=== PATIENT | female | born 1985 | race Caucasian/White ===

== ENCOUNTER 2017-06-24 09:43 | Emergency (ER) | payer OTHER ==
[2017-06-24 09:59] VITALS: BP 120/65
[2017-06-24] MEDS ORDERED: Tetan/Diph/Pertus SYR(Tdap)* 0.5 ML SYR(BOOSTRIX) use SYR IM ONE (10:44)
--- NOTE | 2017-06-24 11:16 | UC ---
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 TETANUS STATUS UNKNOWN. - History Of Current Complaint Chief Complaint: UCLaceration Stated Complaint: LEFT HAND LACERATION WC Time Seen by Provider: 06/24/17 10:24 Hx Obtained From: Patient Hx Last Menstrual Period: 06/17/17 Laceration Location: Hand Mechanism Of Injury: Sharp Trauma Onset/Duration: Sudden Onset, Lasting Hours, Still Present Severity: Mild Pain Intensity: 6 Pain Scale Used: 0-10 Numeric Related History: Occupational Injury, Dominant Hand Right - Allergies/Home Medications Allergies/Adverse Reactions: Allergies Allergy/AdvReac Type Severity Reaction Status Date / Time No Known Allergies Allergy Verified 06/24/17 09:56 PMH/Surg Hx/FS Hx/Imm Hx Previously Healthy: Yes - Surgical History Surgical History: Yes Surgery Procedure, Year, and Place: wisdom teeth - Family History Known Family History: Negative: Blood Disorder - Social History Occupation: Employed Full-time Lives: With Family Alcohol Use: Occasionally Substance Use Type: None Smoking Status (MU): Never Smoked Tobacco - Immunization History Most Recent Influenza Vaccination: Not the 2016/2017 Season Most Recent Tetanus Shot: Unknown Review of Systems Constitutional: Negative Skin: Other - LACERATION LEFT HAND Eyes: Negative ENT: Negative Respiratory: Negative Cardiovascular: Negative Gastrointestinal: Negative Genitourinary: Negative Motor: Negative Neurovascular: Negative Musculoskeletal: Negative Neurological: Negative Psychological: Negative Is Patient Immunocompromised?: No All Other Systems Reviewed And Are Negative: Yes Physical Exam Triage Information Reviewed: Yes Appearance: Well-Appearing, No Pain Distress, Well-Nourished Vital Signs: Initial Vital Signs Temp 98.1 F 06/24/17 09:55 Pulse 88 06/24/17 09:55 Resp 16 06/24/17 09:55 BP 120/65 06/24/17 09:55 Pulse Ox 100 06/24/17 09:55 Vital Signs Reviewed: Yes Eye Exam: Normal ENT Exam: Normal ENT: Positive: Normal ENT inspection, Pharynx normal Dental Exam: Normal Neck exam: Normal Neck: Positive: Supple, Nontender, No Lymphadenopathy Respiratory Exam: Normal Respiratory: Positive: Chest non-tender, Lungs clear, Normal breath sounds, No respiratory distress, No accessory muscle use Cardiovascular Exam: Normal Cardiovascular: Positive: RRR, No Murmur, Pulses Normal Abdominal Exam: Normal Musculoskeletal Exam: Normal Musculoskeletal: Positive: Strength Intact, ROM Intact Neurological Exam: Normal Psychological Exam: Normal Skin: Positive: Other - LACERATION LEFT HAND Laceration Repair - Laceration Repair 1 Description: Linear Laceration Size After Repair: Length (cm) - 5, Width (mm) - 2, Depth (mm) - 1 Cleansing Completed Via Routine Prep: Yes Irrigation With Pressure Irrigation Device: Yes Closure Material: Skin Adhesive, SteriStrips Laceration Course/Dx - Differential Dx - Laceration/Wound Differental Diagnoses: Laceration Provider Diagnoses: LACERATION LEFT HAND; TETANUS PROPHYLAXIS Discharge - Discharge Plan Condition: Stable Disposition: HOME Patient Education Materials: Laceration (ED), Skin Adhesive Care (ED), Steristrips (ED) Referrals: Cristi Welch MD [Primary Care Provider] -
== END 2017-06-24 11:05 | disposition home or self-care (01) ==
LOC: UCCORT 09:43
DX: S61.412A Laceration without foreign body of left hand, initial encounter (principal); W26.8XXA Contact with other sharp object(s), not elsewhere classified, initial encounter; Y93.9 Activity, unspecified; Y92.9 Unspecified place or not applicable; Y99.0 Civilian activity done for income or pay; Z23 Encounter for immunization
CPT/HCPCS: 12001; 12002; 90471; 90715; 99211; G0463

== ENCOUNTER 2018-10-09 14:05 | Emergency (ER) | payer OTHER ==
[2018-10-09 14:49] VITALS: BP 110/68
[2018-10-09] MEDS ORDERED: Albuterol HFA INHALER* 8 gm MDI INH ONE (15:24)
[2018-10-09] MEDS ORDERED: predniSONE TAB* 20 MG PO ONE (15:26)
--- NOTE | 2018-10-09 15:33 | UC ---
Throat Pain/Nasal Siva HPI - HPI Summary HPI Summary: 33 yo female who has been ill for 4 days Initially mod to severe sore throat now with runny nose/cough productive of phelgm (blood tinged today x 1) and chest tightness no fever she has had chills no myalgias - History of Current Complaint Chief Complaint: UCRespiratory Stated Complaint: COUGH Time Seen by Provider: 10/09/18 15:16 Hx Obtained From: Patient Hx Last Menstrual Period: unknown Onset/Duration: Gradual Onset, Lasting Hours Severity: Mild Pain Intensity: 4 Pain Scale Used: 0-10 Numeric Cough: Productive Associated Signs & Symptoms: Positive: Nasal Discharge. Negative: Dysphagia, FB Sensation, Drooling, Wheezing, Hoarseness, Sinus Discomfort, Fever, Vomiting , Rash - Allergies/Home Medications Allergies/Adverse Reactions: Allergies Allergy/AdvReac Type Severity Reaction Status Date / Time No Known Allergies Allergy Verified 10/09/18 14:45 Home Medications: Home Medications D-Methorphan/PE/Acetaminophen [Cold Multi-Symptom Daytim] 1 tab PO Q4H PRN 10/09 [History Confirmed 10/09/18] PMH/Surg Hx/FS Hx/Imm Hx Previously Healthy: Yes - Surgical History Surgical History: Yes Surgery Procedure, Year, and Place: wisdom teeth - Family History Known Family History: Positive: Hypertension Negative: Blood Disorder - Social History Alcohol Use: Occasionally Substance Use Type: None Smoking Status (MU): Never Smoked Tobacco - Immunization History Most Recent Influenza Vaccination: Not the 2016/2017 Season Most Recent Tetanus Shot: Unknown Review of Systems All Other Systems Reviewed And Are Negative: Yes Constitutional: Positive: Chills, Fatigue Skin: Positive: Negative Eyes: Positive: Negative ENT: Positive: Sore Throat, Nasal Discharge, Sinus Congestion Respiratory: Positive: Cough Cardiovascular: Positive: Negative Gastrointestinal: Positive: Negative Genitourinary: Positive: Negative Motor: Positive: Negative Neurovascular: Positive: Negative Musculoskeletal: Positive: Negative Neurological: Positive: Negative Psychological: Positive: Negative Physical Exam Triage Information Reviewed: Yes Appearance: Well-Appearing, No Pain Distress, Well-Nourished Vital Signs: Initial Vital Signs Temp 97.8 F 10/09/18 14:45 Pulse 75 10/09/18 14:45 Resp 16 10/09/18 14:45 BP 110/68 10/09/18 14:45 Pulse Ox 100 10/09/18 14:45 Vital Signs Reviewed: Yes Eyes: Positive: Conjunctiva Clear ENT: Positive: Hearing grossly normal, Pharyngeal erythema, Nasal congestion, TMs normal, Uvula midline. Negative: Tonsillar swelling, Tonsillar exudate, Trismus, Muffled voice, Hoarse voice, Sinus tenderness Neck: Positive: Supple, Enlarged Nodes @ - tender ant cervical nodes Respiratory: Positive: No respiratory distress, No accessory muscle use, Wheezing, Other: - bronchospastic cough Cardiovascular: Positive: RRR Musculoskeletal: Positive: ROM Intact, No Edema Neurological: Positive: Alert Psychological Exam: Normal Skin Exam: Normal Throat Pain/Nasal Course/Dx - Course Course Of Treatment: strep negative - Differential Dx/Diagnosis Provider Diagnosis: Acute bronchitis with bronchospasm, Pharyngitis Discharge - Sign-Out/Discharge Documenting (check all that apply): Patient Departure All imaging exams completed and their final reports reviewed: No Studies - Discharge Plan Condition: Stable Disposition: HOME Patient Education Materials: Acute Bronchitis (ED), How to Use a Metered-Dose Inhaler and a Spacer (ED) Referrals: No Primary Care Phys,NOPCP [Primary Care Provider] - Additional Instructions: strep (-) recheck for worsening symptoms or if not better in 4 days - Billing Disposition and Condition Condition: STABLE Disposition: Home
== END 2018-10-09 15:41 | disposition home or self-care (01) ==
LOC: UCCORT 14:05
DX: J02.9 Acute pharyngitis, unspecified (principal); J20.9 Acute bronchitis, unspecified
CPT/HCPCS: 87651; 99213; A9270-GY; G0463; J7512

== ENCOUNTER 2018-12-19 12:39 | Emergency (ER) | payer OTHER ==
[2018-12-19 13:25] VITALS: BP 106/65
--- NOTE | 2018-12-19 13:36 | UC ---
Throat Pain/Nasal Siva HPI - HPI Summary HPI Summary: 33-year-old woman comes in with a chief complaint of 4-5 days of upper respiratory tract infection symptoms. This started as runny nose not moving down into her chest. She lost her voice. Chest congestion that she brings up that is green. Patient reports this reminds her of when she had bronchitis. She was treated with antibiotics and steroids and inhaler. She reports she still has the inhaler. Does have a sore throat and throat lozenges have been helping with the sore throat. - History of Current Complaint Chief Complaint: UCRespiratory Stated Complaint: ST, COUGH Time Seen by Provider: 12/19/18 13:24 Hx Last Menstrual Period: DOES NOT HAVE REG PERIODS, HAS IMPLANMON Pain Intensity: 3 - Allergies/Home Medications Allergies/Adverse Reactions: Allergies Allergy/AdvReac Type Severity Reaction Status Date / Time No Known Allergies Allergy Verified 12/19/18 13:19 Home Medications: Home Medications Otc Cough Med PRN 12/19/18 [History] PMH/Surg Hx/FS Hx/Imm Hx Previously Healthy: Yes - Surgical History Surgical History: Yes Surgery Procedure, Year, and Place: wisdom teeth - Family History Known Family History: Positive: Hypertension Negative: Blood Disorder - Social History Alcohol Use: Occasionally Substance Use Type: None Smoking Status (MU): Never Smoked Tobacco - Immunization History Most Recent Influenza Vaccination: Not the 2016/2017 Season Most Recent Tetanus Shot: Unknown Review of Systems All Other Systems Reviewed And Are Negative: Yes Constitutional: Positive: Negative Skin: Positive: Negative Eyes: Positive: Negative ENT: Positive: Sore Throat, Nasal Discharge, Sinus Congestion Respiratory: Positive: Cough, Other - SEE HPI Cardiovascular: Positive: Negative Gastrointestinal: Positive: Negative Motor: Positive: Negative Neurovascular: Positive: Negative Musculoskeletal: Positive: Negative Neurological: Positive: Negative Psychological: Positive: Negative Is Patient Immunocompromised?: No Physical Exam Triage Information Reviewed: Yes Appearance: No Pain Distress, Well-Nourished, Ill-Appearing - MILD Vital Signs: Initial Vital Signs Temp 98.7 F 12/19/18 13:21 Pulse 77 12/19/18 13:21 Resp 16 12/19/18 13:21 BP 106/65 12/19/18 13:21 Pulse Ox 100 12/19/18 13:21 Vital Signs Reviewed: Yes Eye Exam: Normal Eyes: Positive: Conjunctiva Clear ENT: Positive: Pharyngeal erythema, Nasal congestion, Nasal drainage, TMs normal Neck exam: Normal Neck: Positive: Supple Respiratory: Positive: Lungs clear, Normal breath sounds, No respiratory distress Cardiovascular: Positive: RRR Musculoskeletal Exam: Normal Musculoskeletal: Positive: Strength Intact, ROM Intact Neurological Exam: Normal Neurological: Positive: Alert, Muscle Tone Normal Psychological Exam: Normal Psychological: Positive: Age Appropriate Behavior Skin Exam: Normal Throat Pain/Nasal Course/Dx - Course Course Of Treatment: DISCUSSED VIRAL VERSES BACTERIAL INFECTION AND THE ROLE OF ANTIBIOTICS. THE PATIENT PREFERS TO BE ON ANTIBIOTICS AT THIS TIME. - Differential Dx/Diagnosis Provider Diagnosis: Laryngitis, Bronchitis with bronchospasm Discharge - Sign-Out/Discharge Documenting (check all that apply): Patient Departure All imaging exams completed and their final reports reviewed: No Studies - Discharge Plan Condition: Stable Disposition: HOME Prescriptions: Azithromyxin LEENA (NF) [Z-Elena (Zithromax) 250 mg tabs #6] 2 tab PO .TODAY, THEN 1 DAILY #6 tab predniSONE TAB* [Deltasone 20 MG TAB*] 40 mg PO DAILY #10 tab Patient Education Materials: Laryngitis (ED), Acute Bronchitis (ED), Bronchospasm (ED) Forms: *Work Release Referrals: [facility] [place] [facility] [place]] Additional Instructions: FOLLOW UP WITH YOUR DOCTOR IF NOT COMPLETELY IMPROVED. GET RECHECKED SOONER IF YOUR CONDITION WORSENS OR ANY QUESTIONS OR CONCERNS. - Billing Disposition and Condition Condition: STABLE Disposition: Home
== END 2018-12-19 13:42 | disposition home or self-care (01) ==
LOC: UCCORT 12:39
DX: A69.1 Other Vincent's infections (principal); J40 Bronchitis, not specified as acute or chronic
CPT/HCPCS: 99212; G0463

== ENCOUNTER 2018-12-27 17:13 | Emergency (ER) | payer OTHER ==
[2018-12-27 18:01] VITALS: BP 106/63
--- NOTE | 2018-12-27 18:11 | UC ---
Respiratory Complaint HPI - HPI Summary HPI Summary: Pt reports worsening cough since her 12/23 appt here last week. She was rx'd steroid pack and zpack and she does not feel improvement after completion of both. She lives with smoker. When questioned further her cough has been since 09/2018. denies reflux or sinusitis. RECENT TRAVEL: no - History of Current Complaint Chief Complaint: UCGeneralIllness Stated Complaint: RECHECK - COUGH,ST,EARS Time Seen by Provider: 12/27/18 17:59 Hx Obtained From: Patient Hx Last Menstrual Period: implanon Pain Intensity: 0 Pain Scale Used: 0-10 Numeric Character: Cough: Nonproductive - Allergies/Home Medications Allergies/Adverse Reactions: Allergies Allergy/AdvReac Type Severity Reaction Status Date / Time No Known Allergies Allergy Verified 12/27/18 17:57 PMH/Surg Hx/FS Hx/Imm Hx - Additional Past Medical History Additional PMH: no chronic condition Previously Healthy: Yes - Surgical History Surgical History: Yes Surgery Procedure, Year, and Place: wisdom teeth - Family History Known Family History: Positive: Hypertension Negative: Blood Disorder - Social History Alcohol Use: Occasionally Substance Use Type: None Smoking Status (MU): Never Smoked Tobacco - Immunization History Most Recent Influenza Vaccination: not current Most Recent Tetanus Shot: Unknown Review of Systems All Other Systems Reviewed And Are Negative: Yes Constitutional: Positive: Negative Skin: Negative: Rash ENT: Negative: Sore Throat, Ear Ache, Nasal Discharge, Sinus Congestion Respiratory: Positive: Cough. Negative: Other - denies wheezing Physical Exam Triage Information Reviewed: Yes Appearance: Well-Appearing Vital Signs: Initial Vital Signs Temp 98.5 F 12/27/18 17:57 Pulse 84 12/27/18 17:57 Resp 18 12/27/18 17:57 BP 106/63 12/27/18 17:57 Pulse Ox 100 12/27/18 17:57 Eye Exam: Normal Eyes: Positive: Conjunctiva Clear ENT: Positive: Pharynx normal, TMs normal, Uvula midline. Negative: Sinus tenderness Neck: Positive: No Lymphadenopathy Respiratory: Positive: Lungs clear, No respiratory distress, Other: - +cuoghing during visit. Cardiovascular Exam: Normal Skin: Negative: Rashes Respiratory Course/Dx - Course Course Of Treatment: Chronic cough in a pt. recently tx'd w/ antibx and steroid pack. Tx'd 1 wk ago and here today w/ continued symptoms. When questioned further pt. has had a cough since 09/2018 . She does live w/ a smoker and we discussed that this could make cough worse. IF this is viral there is little else we can do aside from tx symptoms. I will do trial of albuterol inhaler and add a cough suppressant. WE discussed reflux being a cause of chronic cough and she will follow up with primary care about this. Also discussed allergies being a cause. she will consider otc meds for this. vitals good, O2 good. - Differential Dx/Diagnosis Differential Diagnosis/HQI/PQRI: Asthma, Lower Resp Infection, Sinusitis Provider Diagnosis: Chronic cough Discharge - Sign-Out/Discharge Documenting (check all that apply): Patient Departure All imaging exams completed and their final reports reviewed: No - Discharge Plan Condition: Good Disposition: HOME Prescriptions: Acetaminoph/Cod 120/12 mg LIQ* [Tylenol/Codeine 120/12 LIQ*] 10 ml PO BEDTIME PRN 5 Days #50 ml MDD 10ml PRN Reason: Cough Albuterol HFA INHALER* [Ventolin HFA Inhaler*] 2 puff INH Q4H PRN #1 mdi PRN Reason: Cough Patient Education Materials: Chronic Cough (ED) Referrals: [facility] [Outside] - 2 Weeks Additional Instructions: If cough persists this may need outpatient follow up. - Billing Disposition and Condition Condition: GOOD Disposition: Home
--- NOTE | 2018-12-28 08:24 | UC ---
- Progress Note Progress Note: CXR showed stigmata of COPD no change in RX patient's discharge shows she was advised to see PMD in 2 weeks Course/Dx - Diagnoses Provider Diagnoses: Chronic cough Discharge - Sign-Out/Discharge Documenting (check all that apply): Post-Discharge Follow Up All imaging exams completed and their final reports reviewed: Yes - Discharge Plan Condition: Good Disposition: HOME Prescriptions: Acetaminoph/Cod 120/12 mg LIQ* [Tylenol/Codeine 120/12 LIQ*] 10 ml PO BEDTIME PRN 5 Days #50 ml MDD 10ml PRN Reason: Cough Albuterol HFA INHALER* [Ventolin HFA Inhaler*] 2 puff INH Q4H PRN #1 mdi PRN Reason: Cough Patient Education Materials: Chronic Cough (ED) Referrals: [facility] [Outside] - 2 Weeks Additional Instructions: If cough persists this may need outpatient follow up. - Billing Disposition and Condition Condition: GOOD Disposition: Home
== END 2018-12-27 19:19 | disposition home or self-care (01) ==
LOC: UCCORT 17:13
DX: R05 Cough (principal)
CPT/HCPCS: 71046; 99212; G0463

== ENCOUNTER 2019-09-05 17:30 | Emergency (ER) | payer BC, OTHER ==
[2019-09-05 18:23] VITALS: BP 121/69
--- NOTE | 2019-09-05 19:05 | UC ---
Skin Complaint HPI - HPI Summary HPI Summary: Pt present to for eval of chapped lips. sTates have been dry and "sting" x 5 days. pt has used 3 different products of chapstick with little improvement. sTates they feels swollen. no bleeding. No wounds, lesions. no history of cold sores. no intraoral swelling or lesions Denies new makeup, lipstick. 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 dissolver operator reviewed this visit - History of Current Complaint Chief Complaint: UCSkin Time Seen by Provider: 09/05/19 18:57 Stated Complaint: CHAPPED LIPS Hx Obtained From: Patient Hx Last Menstrual Period: implanon ?: No Onset/Duration: Gradual Onset Pain Intensity: 5 - Allergy/Home Medications Allergies/Adverse Reactions: Allergies Allergy/AdvReac Type Severity Reaction Status Date / Time No Known Allergies Allergy Verified 09/05/19 18:23 Home Medications: Home Medications Etonogestrel IMPLANT(NF) [Implanon (NF)] 68 mg IMPLANT ONCE 12/23/14 [History Confirmed 09/05/19] Albuterol HFA INHALER* [Ventolin HFA Inhaler*] 2 puff INH Q4H PRN #1 mdi [Rx Confirmed 09/05/19] PMH/Surg Hx/FS Hx/Imm Hx Previously Healthy: Yes - Surgical History Surgical History: Yes Surgery Procedure, Year, and Place: wisdom teeth - Family History Known Family History: Positive: Hypertension, Non-Contributory Negative: Blood Disorder - Social History Occupation: Employed Full-time Lives: With Family Alcohol Use: Occasionally Substance Use Type: None Smoking Status (MU): Never Smoked Tobacco - Immunization History Most Recent Influenza Vaccination: not current Most Recent Tetanus Shot: Unknown Review of Systems All Other Systems Reviewed And Are Negative: No Constitutional: Positive: Negative Skin: Positive: Other - lips Eyes: Positive: Negative ENT: Positive: Negative Physical Exam - Summary Physical Exam Summary: Vital Signs Reviewed: Yes A+Ox3, no distress Eyes: Conjunctiva Clear, ALEX. EOM intact and full ENT: Hearing grossly normal TM x 2 clear, lips: dry appearing, the roberto border inflammed and irritated. 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 Skin: Positive: no rash, no ecchymosis Triage Information Reviewed: Yes Vital Signs: Initial Vital Signs Temp 98.6 F 09/05/19 18:16 Pulse 67 09/05/19 18:16 Resp 16 09/05/19 18:16 BP 121/69 09/05/19 18:16 Pulse Ox 99 09/05/19 18:16 Course/Dx - Course Course Of Treatment: Pt presents with persistent chapped lips despite several OTC products on exam vss pt with does have inflammed and mild excoriation of roberto border recommend coconut oil, sugar gentle scrub with vasoline no additional OTC prep avoid fluoride toothpaste return precuations - Diagnoses Provider Diagnosis: Chapped lips Discharge ED - Sign-Out/Discharge Documenting (check all that apply): Patient Departure All imaging exams completed and their final reports reviewed: No Studies - Discharge Plan Condition: Stable Disposition: HOME Patient Education Materials: Dermatitis (ED) Referrals: [facility] [Outside] No Primary Care Phys,NOPCP [Primary Care Provider] - Additional Instructions: For your lips the following is recommended: Make a paste with coconut oil and sugar - gently massage on once a day - then cover with a vasoline (not medicated) humidify the room where you sleep Use non-fluorinated toothpaste - Billing Disposition and Condition Condition: STABLE Disposition: Home
== END 2019-09-05 19:25 | disposition home or self-care (01) ==
LOC: UCCORT 17:30
DX: K13.0 Diseases of lips (principal)
CPT/HCPCS: 99211; G0463